=== PATIENT | female | born 1995 | race African-American/Black ===

== ENCOUNTER 2017-01-04 04:48 | Emergency (ER) | payer OTHER ==
[~2017-01-04] VITALS: Ht 157.5 cm; Wt 68.0 kg
[2017-01-04 04:50] VITALS: BP_SYST 117
[2017-01-04 05:19] VITALS: BP_SYST 112
== END 2017-01-04 05:19 ==
LOC: SED 04:48
DX: Z02.83 Encounter for blood-alcohol and blood-drug test (principal)